=== PATIENT | female | born 1985 | race Two or more races ===

== ENCOUNTER 2022-11-03 10:55 | Inpatient (IN) ==
[~2022-11-03 10:55] MED LIST: CITRIC ACID/SODIUM CITRATE 15 ML UDC PO SCH; ceFAZolin 2000MG 2,000 MG/15 ML SYR IV SCH
[2022-11-03] MEDS ORDERED: LACTATED RINGER'S 1,000 ML IV SCH (12:00)
[2022-11-03 12:28] LABS: Basophils # (auto) 0.08 K/uL (0-0.2); Basophils % (auto) 0.8 %; Eosinophils # (auto) 0.06 K/uL (0-0.50); Eosinophils % (auto) 0.6 %; Hematocrit (blood only) 37.5 % (37.0-47.0); Hemoglobin 12.1 g/dl (12.0-16.0); Immature Granulocytes # (auto) 0.09 K/uL (0.01-0.20); Immature Granulocytes % (auto) 0.9 %; Lymphocytes # (auto) 2.22 K/uL (1.2-3.4); Lymphocytes % (auto) 23.2 %; Mean Corpuscular Hemoglobin 26.9 pg (25.0-34.0); Mean Corpuscular Hgb Conc 32.3 g/dL (32.0-36.0); Mean Corpuscular Volume 83.5 fL (80.0-100.0); Mean Platelet Volume 12.9 fL (9.4-12.4); Monocytes # (auto) 0.46 K/uL (0.11-0.59); Monocytes % (auto) 4.8 %; Neutrophils # (auto) 6.67 K/uL (1.40-6.50); Neutrophils % (auto) 69.7 %; Nucleated RBC # (auto) 0.02 K/uL (0-0.12); Nucleated RBC % (auto) 0.2 %; Platelet Count 245 K/uL (130-400); RDW Coefficient of Variation 15.5 % (11.5-14.5); RDW Standard Deviation 46.9 fL (36.4-46.3); Red Blood Count 4.49 M/uL (4.20-5.40); White Blood Count 9.58 K/ul (4.8-10.8)
[2022-11-03] MEDS ORDERED: fentaNYL citrate 100 MCG/2 ML VIAL ONE (12:39)
[2022-11-03] MEDS ORDERED: OXYTOCIN 10 UNITS/ML 10ML VIAL ONE (12:39)
[2022-11-03] MEDS ORDERED: MoRPHine SULFATE PF 1 MG/ML 10 ML AMP/VIAL ONE (12:40)
[2022-11-03] MEDS ORDERED: CITRIC ACID/SODIUM CITRATE 15 ML UDC ONE (13:08)
--- NOTE | 2022-11-03 13:24 | Anesthesiology Consultation ---
Date of Service November 03, 2022 Assessment & Plan ASA ASA3 Proposed Anesthesia Anesthesia Type: Spinal Risk / Benefits Reviewed With: PT / POA / Parent / Guardian, Accepts Plan and Informed Consent Obtained History Surgery Operation Date: 11/03/22 12:15 Proposed Procedures p Section in LD(Bilateral) - Carmen Sorto MD, FACOG Height/Weight Height: 5 ft 2 in Weight: 68.039 kg Allergies Allergy/AdvReac Type Severity Reaction Status Date / Time No Known Allergies Allergy Verified 11/02/22 15:38 Medications Home Medications Medication Instructions Recorded Confirmed Last Taken acetone (urine) test (Ketone Urine #50 ea 09/15/22 11/02/22 Unknown Test strips) blood sugar diagnostic (OneTouch #150 ea 09/15/22 11/02/22 Unknown Verio test strips) blood-glucose meter (OneTouch #1 ea 09/15/22 11/02/22 Unknown Verio Reflect Meter) lancets 33 gauge (OneTouch Delica #150 ea 09/15/22 11/02/22 Unknown Lancets) blood-glucose sensor (FreeStyle #1 ea 09/27/22 11/02/22 Unknown Irena 3 Sensor device) blood-glucose sensor (FreeStyle #2 ea 09/27/22 11/02/22 Unknown Irena 3 Sensor device) aspirin 81 mg tablet 81 mg PO DAILY 11/03/22 11/03/22 11/02/22 12:00 prenat.vits,chandana,pcx-ktpl-hgpij 1 tab PO DAILY 11/03/22 11/03/22 11/02/22 12:00 NPO Date Last Intake of Fluids: 11/03/22 Time Last Intake of Fluids: 00:00 Date Last Intake of Solids: 11/03/22 Time Last Intake of Solids: 00:00 Past Medical History Medical History History of chicken pox Exercise / Class Metabolic Activity II 4-5 Yardwork/Stairs/Walk up hill Past Family History Family History Mother Hypertension Father Hypertension Denies family history of Ovarian cancer Prostate cancer Myocardial infarction Breast cancer Colorectal cancer Past Surgical History Surgical History S/P appendectomy S/P section Past Anesthesia History No Hx of Anesthesia Complications and No Family Hx of Anesthesia Complications History of PONV No Hx of PONV and No Hx of Motion Sickness Social History Smoking Status: Never smoker Hx Alcohol Use: No Hx Substance Use: No substance use type: does not use Review of Systems denies fever/cough/ colds/ chest pain/ SOB/ BAL denies BAL Physical Exam Vital Signs Last Vital Signs Temp 37 C 11/03/22 11:30 Pulse 94 H 11/03/22 11:30 Resp 20 11/03/22 11:30 BP 111/70 11/03/22 11:30 ENMT Mouth: no TMJ abnormality and no dentition abnormality Thyromental Distance: > or= 3.5 Finger Breadths Mallampati Class: II Neck neck extension not limited Respiratory normal respiratory effort; no respiratory distress Auscultation: lungs clear to auscultation bilaterally Cardiovascular Rate/Rhythm: regular rate and regular rhythm Neurologic moves all extremities Psychiatric Orientation: alert and oriented x 3 Testing Laboratory Results 11/03/22 12:09 Blood Type AB Positive 11/03/22 12:01 Antibody Screen NEGATIVE 11/03/22 12:01 11/03/22 12:02 POC Glucose 79
--- NOTE | 2022-11-03 13:40 | History & Physical Report ---
Date of Service November 03, 2022 Assessment & Plan (1) 37 weeks gestation of : (2) Intrahepatic cholestasis of : (3) Gestational diabetes: (4) History of delivery, currently : (5) Elderly multigravida, currently : Plan Admit, iv, labs. Desires to proceed with section. Indication for delivery reviewed. FHTs categ 1. Anesth aware. Consent reviewed and signed, risks, benefits complications reviewed. Admission and Anticipated Discharge Date Admission Date: November 03, 2022 History of Present Illness Chief Complaint: prior c/s for planned c/s Primary Care Provider: Robles Valles, DO 37yo at 37 2/7 wks with diagnosis of ICP for planned delivery. She had prior c/s and although was considering if presented in labor, in current scenario, desires repeat c/s. She has history of ICP with last . Yesterday she complained of hand/feet itching and labs including bile salts and lfts ordered. The lfts returned elevated, both ast and alt, at least doubled over baseline. [place] [facility] [place] that with diagnosis of presumed ICP they would recommend delivery and they agreed. Patient was notified and told to arrive in LD. She does not want cervix exam. OBH: c/s. preeclampsia, ICP, delivery sab x 1 GYNH: nl paps no stds. Allergies Allergy/AdvReac Type Severity Reaction Status Date / Time No Known Allergies Allergy Verified 11/02/22 15:38 Home Medications Medication Instructions Recorded Confirmed Type acetone (urine) test (Ketone Urine #50 ea 09/15/22 11/02/22 Rx Test strips) blood sugar diagnostic (OneTouch #150 ea 09/15/22 11/02/22 Rx Verio test strips) blood-glucose meter (OneTouch #1 ea 09/15/22 11/02/22 Rx Verio Reflect Meter) lancets 33 gauge (OneTouch Delica #150 ea 09/15/22 11/02/22 Rx Lancets) blood-glucose sensor (FreeStyle #1 ea 09/27/22 11/02/22 Rx Irena 3 Sensor device) blood-glucose sensor (FreeStyle #2 ea 09/27/22 11/02/22 Rx Irena 3 Sensor device) aspirin 81 mg tablet 81 mg PO DAILY 11/03/22 11/03/22 History prenat.vits,chandana,uat-oyuk-kchax 1 tab PO DAILY 11/03/22 11/03/22 History Patient History Medical History History of chicken pox Surgical History S/P appendectomy S/P section Family History Mother Hypertension Father Hypertension Denies family history of Ovarian cancer Prostate cancer Myocardial infarction Breast cancer Colorectal cancer Social History (Updated 11/03/22 @ 11:16 by Omaira Weinberg RN) Smoking Status: Never smoker Second Hand Exposure: No; Hx Alcohol Use: No Hx Substance Use: No Preferred Language: Chinese Communication Ability: Effective Visual Impairment: No Limitations Hearing Ability: Normal Information Security Analyst Required: No Beliefs That Will Affect Care: None marital status: marital status details: Efrem Sorto (37) [phone] Current Living Situation: Spouse and Family Current Living Situation Comment: [facility] Family, spouse and 1 Daughter current occupational status: employed current occupation: IT works remotely Other Information That Helps Us Care for You: No Feels Safe at Home: Yes Safety Concerns: Feels Safe At This Time Childhood Exposure to Second-Hand Smoke: No Dental Care, Regularly: Yes Physical Activity Frequency: Daily Seatbelt Use: never Sunscreen Use: Yes Gender Identity: Female Assistive Devices: None Review of Systems as per Subjective / HPI Physical Exam Constitutional: WD/WN, vitals as above Respiratory: normal respiratory effort, lungs clear to auscultation Cardiovascular: Rate/Rhythm: regular rate and regular rhythm Gastrointestinal (Abdomen): soft gravid nt Musculoskeletal: no edema nontender calves Neurologic: grossly normal Psychiatric: A+Ox3, euthymic affect Genitourinary: OB Exam Monitor Tracing: + external FHT monitor used, + external uterine monitor used (irreg), + category I and + normal FHT variability Results & Data ([place]) Vital Signs (Past 12 Hours) Vital Signs Temp Pulse Resp BP 11/03/22 11:30 98.6 F 94 H 20 111/70 11/03/22 13:25 72 03/03/23 13:25 125/74 11/03/22 11:02 94 H 111/70 Coding Level of Care Code None Diagnoses 37 weeks gestation of Z3A.37 Intrahepatic cholestasis of O26.619; K83.1 Gestational diabetes O24.419 History of delivery, currently O34.219 Elderly multigravida, currently O09.529
[2022-11-03] MEDS ORDERED: PHENYLEPHRINE HCL 10 MG/ML VIAL ONE (13:58)
[2022-11-03] MEDS ORDERED: ONDANSETRON INJ 2 MG/ML 2 ML VIAL ONE (14:46)
[2022-11-03] MEDS ORDERED: NALOXONE HCL 0.08 MG in SYRINGE 1.8 ML IV PRN (14:49)
[2022-11-03] MEDS ORDERED: MoRPHine SULFATE 2 MG/ML CARP IV PRN (14:49)
[2022-11-03] MEDS ORDERED: NALOXONE HCL 0.4 MG/1 ML VIAL/CARP IV PRN (14:49)
[2022-11-03] MEDS ORDERED: LACTATED RINGER'S 500 ML IV PRN (14:49)
[2022-11-03] MEDS ORDERED: NALBUPHINE HCL INJ 10 MG/ML AMP IV PRN (14:49)
[2022-11-03] MEDS ORDERED: NALOXONE HCL 1 MG in SODIUM CHLORIDE 0.9% 1000ML 1,000 ML IV PRN (14:49)
[2022-11-03] MEDS ORDERED: ePHEDrine sulfate 50 MG/ML AMP IV PRN (14:49)
[2022-11-03] MEDS ORDERED: diphenhydrAMINE 50 MG/ML VIAL IV PRN (14:49)
[2022-11-03] MEDS ORDERED: ONDANSETRON INJ 2 MG/ML 2 ML VIAL IV PRN (14:49)
[2022-11-03] MEDS ORDERED: MoRPHine SULFATE PF 1 MG/ML 10 ML AMP/VIAL INT SPINAL ONE (14:49)
[2022-11-03] MEDS ORDERED: DC INTRASPINAL MORPHINE SCH (15:00)
[2022-11-03] MEDS ORDERED: NO NARCOTICS OR SEDATIVES SCH (15:00)
[2022-11-03] MEDS ORDERED: SODIUM CHLORIDE 0.9% 1000ML 1,000 ML IV SCH (15:00)
--- NOTE | 2022-11-03 15:19 | Operative Report ---
PG Post Operative Report Pre & Post Diagnosis Operation Date: 11/03/22 12:15 Pre-Op Diagnosis: Intrauterine at 37wks Intra hepatic cholestasis of Prior section, desires repeat section Post-Op Diagnosis: Intrauterine at 37wks Intra hepatic cholestasis of Prior section, desires repeat section I identified the patient and participated in the time-out.: Yes Procedure Operation Date: 11/03/22 12:15 Actual Procedures p Repeat Low Transverse Section in LD For live male child at 1435(Bilateral) - Carmen Sorto MD, FACOG Surgeon Carmen Sorto MD, FACOG Enrollment Coordinator RN Estimated Blood Loss 600 Findings Consistent with Post-Op Diagnosis (viable male apgars pending, normal uterus tubes and ovaries bilaterally) Fluids 1200 Specimens placenta cord blood Drains obrien Anesthesia Type Spinal Complications none Disposition Accompanied Patient To Recovery: No Disposition: L&D Indications 37yo at 37wks with diagnosis of ICP recommending delivery. She had prior c/s and desires repeat c/s. Description of Procedure The patient was taken to the operating room and identified. After adequate anesthesia was obtained, she was placed in the supine position with a leftward tilt on the operating table and prepped and draped in the usual sterile fashion. A obrien catheter had already been placed. The knife was used to create a Pfannensteil skin incision that was carried down to the underlying layer of fascia. The fascia was nicked in the midline and this opening was extended laterally using Farrar scissors. Jorge clamps were placed on the superior and inferior aspect of the fascial incision tenting it upward and the underlying rectus muscles were dissected off the overlying fascia both sharply and bluntly using Farrar scissors. The rectus muscles were bluntly in the midline. The peritoneal cavity was bluntly entered into. This opening was stretched. The bladder blade was placed. The vesicouterine peritoneum was elevated and opened up into and the bladder flap was created digitally and bladder blade was replaced. The knife was used to create a hysterotomy and this opening was stretched. The operators hand was placed through the hysterotomy and the bladder blade was removed. The head was elevated and flexed and with fundal pressure the head was delivered. The shoulders and body were rapidly delivered. The cord was clamped and cut and the infant's mouth and nares were bulb suction. The infant was handed off to the awaiting pediatricians. Cord blood was obtained. The placenta was manually expressed. The uterus was exter iorized and cleared of all clots and debris. Dilute IV Pitocin was begun. The uterine tone was improving. The hysterotomy was closed in a running interlocking fashion using 0 Vicryl followed by a second imbricating layer of 0 Vicryl. The hysterotomy was hemostatic. The pelvis was irrigated. The uterus was returned to the abdomen. The gutters were cleared of all clots and debris. The hysterotomy was reinspected and noted to be hemostatic. The fascia was then closed in running fashion using 0 Vicryl. The subcutaneous fat was copiously irrigated and reapproximated using 2-0 chromic. The skin was closed in a subcuticular fashion using 4-0 monocryl. At this point the procedure was terminated. The patient was transferred to the recovery room in stable condition. All sponge, lap and needle counts are correct x2. I attest to the content of the Intraoperative Record and any orders documented therein. Any exceptions are noted below. OB Procedure Charges 88243
[2022-11-03] MEDS ORDERED: SENNA 8.6 MG TAB PO PRN (15:27)
[2022-11-03] MEDS ORDERED: BENZOCAINE 20% AER SPR 82.5 GM CAN EXT PRN (15:27)
[2022-11-03] MEDS ORDERED: DIPHTHERIA/TETANUS/PERTUSSIS 0.5mL SYR/VIAL (Age 7+yrs) IM ONE (15:27)
[2022-11-03] MEDS ORDERED: MAGNESIUM HYDROXIDE SUSP 30 ML UDC PO PRN (15:27)
[2022-11-03] MEDS ORDERED: HYDROCORTISONE ACETATE 25 MG SUPP PR PRN (15:27)
[2022-11-03] MEDS: OXYTOCIN 20 UNITS in LACTATED RINGER'S 1,000 ML IV SCH (16:51)
--- NOTE | 2022-11-03 17:34 | Anesthesiology Progress Note ---
Date of Service November 03, 2022 Anesthesia Post Procedure Vital Signs Vital Signs: Temp Pulse Resp BP Pulse Ox 11/03/22 17:25 20 11/03/22 16:55 20 11/03/22 16:25 36.5 C 20 11/03/22 16:15 20 11/03/22 16:05 20 11/03/22 15:53 16 11/03/22 15:43 16 11/03/22 15:33 20 11/03/22 15:23 36.5 C 20 11/03/22 11:30 37 C 94 H 20 111/70 11/03/22 17:28 100 11/03/22 17:28 65 11/03/22 17:25 61 11/03/22 17:25 119/80 11/03/22 17:23 100 11/03/22 17:23 66 11/03/22 17:18 100 11/03/22 17:18 72 11/03/22 17:15 70 11/03/22 17:15 114/94 11/03/22 17:13 100 11/03/22 17:13 49 L 11/03/22 17:08 100 11/03/22 17:08 48 L 11/03/22 17:05 65 11/03/22 17:05 140/88 11/03/22 17:03 100 11/03/22 17:03 52 L 11/03/22 16:58 100 11/03/22 16:58 51 L 11/03/22 16:56 131 H 11/03/22 16:56 105/79 11/03/22 16:53 99 11/03/22 16:53 57 L 11/03/22 16:48 99 11/03/22 16:48 59 L 11/03/22 16:47 56 L 11/03/22 16:47 121/77 11/03/22 16:43 99 11/03/22 16:43 62 11/03/22 16:38 99 11/03/22 16:38 63 11/03/22 16:35 56 L 11/03/22 16:35 120/64 11/03/22 16:33 99 11/03/22 16:33 66 11/03/22 16:28 99 11/03/22 16:28 63 11/03/22 16:25 61 11/03/22 16:25 127/74 11/03/22 16:23 99 11/03/22 16:23 56 L 11/03/22 16:18 99 11/03/22 16:18 61 11/03/22 16:15 62 11/03/22 16:15 118/63 11/03/22 16:13 98 11/03/22 16:13 64 11/03/22 16:08 99 11/03/22 16:08 58 L 11/03/22 16:05 70 11/03/22 16:05 120/67 11/03/22 16:03 99 11/03/22 16:03 61 11/03/22 15:58 98 11/03/22 15:58 63 11/03/22 15:55 58 L 11/03/22 15:55 125/72 11/03/22 15:53 99 11/03/22 15:53 60 11/03/22 15:48 97 11/03/22 15:48 82 11/03/22 15:45 65 11/03/22 15:45 146/60 H 11/03/22 15:43 98 11/03/22 15:43 67 11/03/22 15:38 100 11/03/22 15:38 64 11/03/22 15:35 62 11/03/22 15:35 102/58 L 11/03/22 15:33 100 11/03/22 15:33 77 11/03/22 15:28 100 11/03/22 15:28 75 11/03/22 15:24 75 11/03/22 15:24 116/58 L 11/03/22 15:23 100 11/03/22 15:23 73 11/03/22 13:25 72 11/03/22 13:25 125/74 11/03/22 11:02 94 H 111/70 Pain Intensity Lower Abdomen: Pain Intensity: 0 Transfer of Care Handoff Completed per policy Notes Mental Status: alert / awake / arousable and participated in evaluation Patient Amnestic to Procedure: Yes Nausea / Vomiting: adequately controlled Pain: adequately controlled Airway Patency, RR, SpO2: stable & adequate BP & HR: stable & adequate Hydration State: stable & adequate Neuraxial Anesthesia: was administered and sensory block is resolving Anesthetic Complications: no major complications apparent and Pt Satisfied with anesthetic care
[2022-11-03] MEDS: SIMETHICONE 80 MG CHEW PO SCH ×2 (19:06→20:10)
[2022-11-03] MEDS: KETOROLAC 30 MG/ML VIAL IV PRN (19:54)
[2022-11-03] MEDS: DOCUSATE SODIUM 100 MG CAP PO SCH (20:10)
[2022-11-04] MEDS: OXYTOCIN 20 UNITS in LACTATED RINGER'S 1,000 ML IV SCH (00:46)
[2022-11-04] MEDS: KETOROLAC 30 MG/ML VIAL IV PRN (04:27)
[2022-11-04] MEDS ORDERED: CITRIC ACID/SODIUM CITRATE 15 ML UDC PO SCH (06:00)
[2022-11-04] MEDS ORDERED: ceFAZolin 2000MG 2,000 MG/15 ML SYR IV SCH (06:00)
[2022-11-04 07:32] LABS: Basophils # (auto) 0.07 K/uL (0-0.2); Basophils % (auto) 0.6 %; Eosinophils # (auto) 0.15 K/uL (0-0.50); Eosinophils % (auto) 1.4 %; Hematocrit (blood only) 30.1 % (37.0-47.0); Immature Granulocytes # (auto) 0.06 K/uL (0.01-0.20); Immature Granulocytes % (auto) 0.5 %; Lymphocytes # (auto) 2.23 K/uL (1.2-3.4); Lymphocytes % (auto) 20.2 %; Mean Corpuscular Hemoglobin 27.9 pg (25.0-34.0); Mean Corpuscular Hgb Conc 33.2 g/dL (32.0-36.0); Mean Corpuscular Volume 84.1 fL (80.0-100.0); Mean Platelet Volume 12.3 fL (9.4-12.4); Monocytes # (auto) 0.57 K/uL (0.11-0.59); Monocytes % (auto) 5.2 %; Neutrophils # (auto) 7.98 K/uL (1.40-6.50); Neutrophils % (auto) 72.1 %; Platelet Count 184 K/uL (130-400); RDW Coefficient of Variation 15.5 % (11.5-14.5); RDW Standard Deviation 47.1 fL (36.4-46.3); Red Blood Count 3.58 M/uL (4.20-5.40); White Blood Count 11.06 K/ul (4.8-10.8)
--- NOTE | 2022-11-04 08:00 | Obstetrical Progress Note ---
Date of Service November 04, 2022 Assessment & Plan (1) Encounter for care and examination after delivery: Day 1 status post repeat Caesarean section. Patient doing well. Routine care Subjective Ambulation: ambulating normally Voiding: no voiding problems Passing Gas:: Yes Diet Tolerance:: regular diet Lochia:: Moderate Feeding Type:: breast feeding Physical Exam Constitutional WD/WN, vitals as above Respiratory normal respiratory effort; no respiratory distress and no labored breathing Gastrointestinal (Abdomen) Inspection/Auscultation: abdomen normal to inspection; abdomen not distended Percussion/Palpation: abdomen soft; abdomen nontender, no guarding and abdomen not rigid Incision clean, dry and intact Genitourinary OB Exam Abdomen: + fundal height Fundus: + firm and + relation to umbilicus (Below); not tender or not boggy Results & Data ([facility]) Vital Signs (Past 12 Hours) Vital Signs Temp Pulse Resp BP Pulse Ox O2 Del Method 11/04/22 06:20 18 99 11/04/22 05:10 18 100 11/04/22 03:30 16 98 11/04/22 02:15 16 98 11/04/22 04:15 18 100 11/04/22 04:15 37 C 75 18 119/77 100 Room Air 11/03/22 23:25 18 98 11/04/22 01:20 18 98 11/03/22 22:10 18 98 11/04/22 00:30 18 98 11/04/22 00:30 36.8 C 65 18 109/71 98 Room Air 11/03/22 21:30 18 100 11/03/22 20:40 18 98
[2022-11-04] MEDS: oxyCODONE/ACETAMINOPHEN 5mg/325mg TAB PO PRN ×5 (08:04→23:58)
[2022-11-04] MEDS ORDERED: ONDANSETRON INJ 2 MG/ML 2 ML VIAL IV PRN (08:49)
[2022-11-04] MEDS ORDERED: PROMETHAZINE HCL 25 MG in SODIUM CHLORIDE 0.9% 50 ML IV PRN (08:49)
[2022-11-04] MEDS ORDERED: ZOLPIDEM TARTRATE 5 MG TAB PO PRN (08:49)
[2022-11-04] MEDS ORDERED: diphenhydrAMINE 50 MG/ML VIAL IV PRN (08:49)
[2022-11-04] MEDS ORDERED: KETOROLAC 30 MG/ML VIAL IV PRN (08:49)
[2022-11-04] MEDS ORDERED: diphenhydrAMINE Capsule 25 MG CAP PO PRN (08:49)
[2022-11-04] MEDS: PRENATAL VITAMIN 1 TAB PO SCH (09:47)
[2022-11-04] MEDS: FERROUS SULFATE 325 MG TAB PO SCH (09:47)
[2022-11-04] MEDS: DOCUSATE SODIUM 100 MG CAP PO SCH ×2 (09:47→20:56)
[2022-11-04] MEDS: SIMETHICONE 80 MG CHEW PO SCH ×5 (09:48→20:57)
[2022-11-04] MEDS: IBUPROFEN 600 MG TAB PO PRN ×3 (11:26→23:58)
[2022-11-05 06:23] LABS: Hematocrit (blood only) 29.6 % (37.0-47.0); Hemoglobin 9.7 g/dl (12.0-16.0)
[2022-11-05] MEDS: DOCUSATE SODIUM 100 MG CAP PO SCH ×2 (08:05→21:17)
[2022-11-05] MEDS: FERROUS SULFATE 325 MG TAB PO SCH (08:05)
[2022-11-05] MEDS: SIMETHICONE 80 MG CHEW PO SCH ×4 (08:06→21:17)
[2022-11-05] MEDS: PRENATAL VITAMIN 1 TAB PO SCH (08:06)
[2022-11-05] MEDS: IBUPROFEN 600 MG TAB PO PRN ×3 (08:07→21:17)
[2022-11-05] MEDS: oxyCODONE/ACETAMINOPHEN 5mg/325mg TAB PO PRN ×3 (08:07→21:18)
[2022-11-05] MEDS ORDERED: bisacodyL 10 MG SUPP PR STA (10:22)
--- NOTE | 2022-11-05 10:25 | Obstetrical Progress Note ---
Date of Service November 05, 2022 Assessment & Plan (1) Encounter for care and examination after delivery: Plan stable, routine pp care. request dulcolax supp, ordered. enc to ambulate and enc to use scds while in bed and explained why. hgb noted, stable. Day #:: 2 Subjective Ambulation: ambulating normally Voiding: no voiding problems Passing Gas:: Yes Diet Tolerance:: regular diet Lochia:: Small Feeding Type:: breast feeding (and bottle feeding) Denies pain issues. worried about not having a bowel mvmt and requests suppository. encouraged ambulation. Constitutional: + as per Subjective / HPI Physical Exam Constitutional WD/WN, vitals as above Respiratory normal respiratory effort, lungs clear to auscultation Cardiovascular Rate/Rhythm: regular rate and regular rhythm Gastrointestinal (Abdomen) Inspection/Auscultation: abdomen normal to inspection and + abdominal surgical incision (c/d/i) Percussion/Palpation: abdomen soft Fundus firm 2cm down Musculoskeletal nt calves no edema Neurologic grossly normal Psychiatric A+Ox3, euthymic affect Results & Data ([facility]) Vital Signs (Past 12 Hours) Vital Signs Temp Pulse Resp BP Pulse Ox O2 Del Method 11/05/22 07:55 98.6 F 82 18 115/82 Room Air 11/04/22 23:45 98.6 F 98 H 18 130/75 97 Room Air
[2022-11-05] MEDS ORDERED: bisacodyL 10 MG SUPP PR PRN (15:20)
--- NOTE | 2022-11-06 07:40 | Obstetrical Progress Note ---
Date of Service November 06, 2022 Assessment & Plan (1) Encounter for care and examination after delivery: Plan stable, routine pp care.ready for dc home, instructions reviewed. checked on papdmp. no issues. f/u 6 wk pp check. breast, rhpos, ri. Day #:: 3 Subjective Ambulation: ambulating normally Voiding: no voiding problems Diet Tolerance:: regular diet Lochia:: Small Feeding Type:: breast feeding no complaints. had bm yesterday and feels better. no pain issues. ready to go h ome Constitutional: + as per Subjective / HPI Physical Exam Constitutional WD/WN, vitals as above Respiratory normal respiratory effort, lungs clear to auscultation Cardiovascular Rate/Rhythm: regular rate and regular rhythm Gastrointestinal (Abdomen) Inspection/Auscultation: abdomen normal to inspection and + abdominal surgical incision (c/d/i) Percussion/Palpation: abdomen soft; abdomen nontender fundus firm 2 cm below umbilicus Musculoskeletal nt calves no edema Neurologic grossly normal Psychiatric A+Ox3, euthymic affect Results & Data ([facility]) Vital Signs (Past 12 Hours) Vital Signs Temp Pulse Resp BP Pulse Ox O2 Del Method 11/05/22 23:10 98.8 F 74 18 121/81 99 Room Air
[2022-11-06 08:23] LABS: Albumin Level 2.7 gm/dl (3.4-5.0); Bilirubin Direct 0.2 mg/dl (0-0.2); Bilirubin,Total 0.5 mg/dl (0.2-1.0)
[2022-11-06] MEDS: FERROUS SULFATE 325 MG TAB PO SCH (08:56)
[2022-11-06] MEDS: DOCUSATE SODIUM 100 MG CAP PO SCH (08:56)
[2022-11-06] MEDS: PRENATAL VITAMIN 1 TAB PO SCH (08:57)
[2022-11-06] MEDS: SIMETHICONE 80 MG CHEW PO SCH (08:57)
[2022-11-06] MEDS: IBUPROFEN 600 MG TAB PO PRN (08:58)
--- NOTE | 2022-11-07 12:46 | Discharge Summary ---
Date of Service Date of admission: November 03, 2022 Date of discharge: November 06, 2022 Admission HPI Per Admitting Provider 37yo at 37 2/7 wks with diagnosis of ICP for planned delivery. She had prior c/s and although was considering if presented in labor, in current scenario, desires repeat c/s. She has history of ICP with last . Yesterday she complained of hand/feet itching and labs including bile salts and lfts ordered. The lfts returned elevated, both ast and alt, at least doubled over baseline. Spoke to MFM at [facility] [place] to confirm that with diagnosis of presumed ICP they would recommend delivery and they agreed. Patient was notified and told to arrive in LD. She does not want cervix exam. OBH: c/s. preeclampsia, ICP, delivery sab x 1 GYNH: nl paps no stds. Discharge Data Consultations 11/03/22 11:56 Consult Anesthesiology Stat Procedures Performed Operation Date: 11/03/22 12:15 Actual Procedures p Repeat Low Transverse Section in LD For live male child at 1435(Bilateral) - Carmen Sorto MD, [facility] Course (1) Intrahepatic cholestasis of : (2) History of delivery, currently : Plan The patient underwent the above stated procedure without incident and her postoperative course and recovery was uncomplicated. On her postoperative day #3 she was tolerating a regular diet, voiding spontaneously, ambulating without problem and was using oral meds for adequate pain control. Her postoperative hemoglobin was 9.7. Her lfts were rechecked and were decreased. She was given written and verbal discharge instructions and told to followup in office at 6wks. She was given appropriate pain medicine prescriptions. Coding Level of Care Code None Diagnoses Intrahepatic cholestasis of O26.619; K83.1 History of delivery, currently O34.219
== END 2022-11-06 11:08 | disposition home or self-care (01) | DRG 788 ==
LOC: OPB 10:55 → 4S1 10:59 → 4E2 18:35